=== PATIENT | female | born 2000 | race Two or more races ===

== ENCOUNTER 2025-03-02 17:26 | Emergency (ER) | payer MEDICAID ==
[~2025-03-02] VITALS: Ht 167.6 cm; Wt 101.5 kg
[2025-03-02] MEDS ORDERED: ondansetron HCL 4 MG/2 ML VIAL IV ONE (18:00)
[2025-03-02 18:06] LABS: BASOPHILS 0.2 % (0.1-1.2); EOSINOPHILS 0.1 % (0.7-5.8); HEMOGLOBIN 8.5 g/dL (11.2-15.7); LYMPHOCYTES 10.3 % (19.3-51.7); MCH 18.8 PG (25.6-32.2); MCHC 28.3 g/dL (32.2-35.5); MCV 66.5 fL (79.4-94.8); MONOCYTES 3.2 % (4.7-12.5); PLATELET COUNT 410 K/uL (182-369); RBC 4.51 M/uL (3.93-5.22)
[2025-03-02 18:16] LABS: INR 1.08 (0.80-1.30); PROTIME 13.4 Sec (11.2-14.2)
[2025-03-02 18:21] LABS: ALBUMIN 3.6 g/dL (3.4-5.0); ALBUMIN/GLOBULIN RATIO 0.86 (1.1-2.4); ANION GAP 12.3 (7-21); BILIRUBIN, TOTAL 0.2 mg/dL (0.2-1.0); CALCIUM 8.8 mg/dL (8.5-10.1); CREATININE, SERUM 0.7 mg/dL (0.55-1.02); MAGNESIUM 1.8 mg/dL (1.8-2.4); POTASSIUM 4.3 mmol/L (3.5-5.1); PROTEIN, TOTAL 7.8 g/dL (6.4-8.2)
[2025-03-02 18:52] LABS: BILIRUBIN, URINE NEGATIVE (negative); BLOOD/HGB, URINE LARGE (Negative); KETONE, URINE NEGATIVE (Negative); LEUK ESTERASE, URINE MODERATE (negative); NITRITE, URINE NEGATIVE (negative); PH, URINE 5.5 (5-7)
[2025-03-02 18:58] LABS: BACTERIA, URINE RARE /hpf (negative); CASTS, URINE NONE SEEN \\lpf; COLLECTION TYPE, URINE CLEAN CATCH; CRYSTALS, URINE NONE SEEN (0-1+); EPITHELIAL CELLS, URINE SQUAMOUS 1+ /lpf (0-1+); REFLEX CULTURE, URINE Yes (No)
[2025-03-02 18:59] LABS: RED BLOOD CELLS, URINE 21-40 /hpf (0-5)
[2025-03-02] MEDS ORDERED: KETOROLAC TROMETHAMINE 30 MG/ML VIAL IV ONE (19:45)
[2025-03-02] MEDS ORDERED: PYRIDIUM200 MG PO (20:43)
[2025-03-02] MEDS ORDERED: IBU800 MG PO (20:43)
[2025-03-02] MEDS ORDERED: VITAMIN C500 M1 PO (20:43)
[2025-03-02] MEDS ORDERED: MACROBID 100 M100 MG PO (20:43)
[2025-03-02] MEDS ORDERED: FERROUS SULFAT325 M2 PO (20:43)
[2025-03-02] MEDS ORDERED: NITROFURANTOIN MONOHYD MACROCR 100 MG HOME.PACK PO ONE (20:45)
[2025-03-02] MEDS ORDERED: PHENAZOPYRIDINE HCL 100 MG TAB PO ONE (21:00)
[2025-03-02 21:06] VITALS: BP 118/63
== END 2025-03-02 21:05 | disposition home or self-care (01) ==
LOC: ED 17:26
PROVIDERS: Emergency Medicine
DX: N92.1 Excessive and frequent menstruation with irregular cycle (principal); N39.0 Urinary tract infection, site not specified
CPT/HCPCS: 36415; 80053; 81001; 83690; 83735; 84703; 85025; 85060; 85610; 87088; 96374; 96375; 99284-25; J1885; J2405